=== PATIENT | male | born 1935 | race Caucasian/White ===

== ENCOUNTER 2019-12-06 12:00 | Inpatient (IN) | payer MEDICARE, OTHER ==
[2019-12-06] MEDS: Rosuvastatin 10 MG TAB PO SCH (19:54)
[2019-12-06] MEDS: Ibuprofen 200 MG TAB PO PRN (19:54)
[2019-12-06] MEDS: Melatonin 3 MG TAB PO SCH (19:55)
[2019-12-06] MEDS: Senokot 8.6 MG TAB PO SCH (19:55)
[2019-12-06] MEDS: B6 PO SCH (19:56)
[2019-12-06] MEDS: LEVOMEFOLATE PO SCH (19:56)
[2019-12-06] MEDS: B12 PO SCH (19:56)
[2019-12-06] MEDS: ALGAL OIL PO SCH (19:56)
--- NOTE | 2019-12-06 20:06 | HP ---
HISTORY OF PRESENT ILLNESS: 84-year-old transfer from [facility] in [place], status post left total hip arthroplasty on 11/28/19, converted from a prior ORIF for femoral neck fracture admitted to SNF for continued rehab. History of heavy alcohol use and dementia have rendered him confused and his recovery has been complicated by agitation. Acute facility staff reported his Haldol had been discontinued prior to transfer, however, he is very confused and agitated. He is here for PT and OT, and will likely require his or a sitter to remain at bedside. CURRENT MEDICATIONS: 1. Wellbutrin 300 mg daily. 2. He takes B6 B12 supplement b.i.d. 3. Acetaminophen p.r.n. 4. 400 mg mag oxide daily. 5. As I said, he will start Lovenox 40 subcu daily tomorrow. 6. Fish oil a 1000 mg daily. 7. Quetiapine 25 mg b.i.d. 8. Metoprolol. 9. Toprol-XL 25 daily. 10. Senokot one tab p.o. at bedtime. 11. Crestor 10 mg daily. 12. Motrin 400 q.8 p.r.n. pain. 13. Coenzyme Q10 200 mg daily. 14. Melatonin 3 mg p.o. at bedtime. 15. Folic acid 1 mg p.o. daily. 16. Vitamin D3 33139 units p.o. daily. PAST MEDICAL HISTORY: Heavy alcohol use, dementia, CAD, paroxysmal atrial fibrillation, GERD, and he has a pacemaker. FAMILY HISTORY: Noncontributory. SOCIAL HISTORY: Heavy alcohol use. ALLERGIES: TO CYCLOBENZAPRINE AND ZOLPIDEM, BOTH CAUSE HALLUCINATIONS. REVIEW OF SYSTEMS: Review of systems deferred. Patient is confused. PHYSICAL EXAMINATION: VITAL SIGNS: Temperature 97.7, pulse 80, respirations 20, O2 saturation 95% on room air, blood pressure 123/58. GENERAL APPEARANCE: Alert, disoriented, and confused. He is well appearing, no acute distress. EYES: Conjunctiva clear. No discharge. ORAL CAVITY: Moist mucous membranes. Normal dentition. NECK: Thyroid supple. No lymphadenopathy. No JVD. No carotid bruit. No thyromegaly. CV: Irregularly irregular rhythm, rate 70s. No murmurs. No pulse deficit. Peripheral pulses 2+. RESPIRATIONS: Clear to auscultation. Good air entry bilaterally. No crackles or wheeze. ABDOMEN: Soft, nontender. No mass or megaly. Normal bowel sounds. NEUROLOGIC: CN 2 through 12 grossly intact. Motor function normal. SKIN: Normal, no rash. Left lateral hip dressing is clean, dry, and intact. LABORATORY DATA: Unavailable at this time. However, it was reported that he was COVID negative at [facility] on 11/27/19. ASSESSMENT: Left femoral neck fracture, left total hip arthroplasty, atrial fibrillation, dementia, alcohol withdrawal, coronary artery disease, gastroesophageal reflux disease. PLAN: 1. Continue his home medications. 2. Increase quetiapine to 50 mg b.i.d. 3. PT, OT. Weightbearing as tolerated. 4. He is to have extended DVT prophylaxis for 14 days, which will start tomorrow. 5. He needs to follow up with lele Juan in 2 weeks. Job ID: [id number] [facility]
[2019-12-06] MEDS: Haloperidol Lactate 5 MG/ML VIAL IM PRN (21:39)
[2019-12-07] MEDS: Magnesium Oxide 400 MG TAB PO SCH (09:03)
[2019-12-07] MEDS: Ubidecarenone 50 MG CAP PO SCH (09:03)
[2019-12-07] MEDS: Fish Oil 1,000 MG CAP PO SCH (09:03)
[2019-12-07] MEDS: Folic Acid 1 MG TAB PO SCH (09:04)
[2019-12-07] MEDS: Cholecalciferol 1,000 UNITS (25 MCG) TAB PO SCH (09:04)
[2019-12-07] MEDS: Enoxaparin Sodium 40 MG/0.4 ML SYRINGE SC SCH (09:05)
[2019-12-07] MEDS: BUPROPION 300 MG PO SCH (10:54)
[2019-12-07] MEDS: ALGAL OIL PO SCH ×2 (10:55→19:34)
[2019-12-07] MEDS: B6 PO SCH ×2 (10:55→19:34)
[2019-12-07] MEDS: LEVOMEFOLATE PO SCH ×2 (10:55→19:34)
[2019-12-07] MEDS: Haloperidol Lactate 5 MG/ML VIAL IM PRN ×2 (10:55→18:26)
[2019-12-07] MEDS: B12 PO SCH ×2 (10:55→19:34)
[2019-12-07] MEDS: Acetaminophen 325 MG TAB PO PRN (13:52)
[2019-12-07] MEDS ORDERED: Haloperidol Lactate 5 MG/ML VIAL ONE (18:24)
[2019-12-07] MEDS: Melatonin 3 MG TAB PO SCH (19:33)
[2019-12-07] MEDS: Rosuvastatin 10 MG TAB PO SCH (19:33)
[2019-12-07] MEDS: Senokot 8.6 MG TAB PO SCH (19:33)
[2019-12-07] MEDS: Ibuprofen 200 MG TAB PO PRN (19:33)
[2019-12-08] MEDS ORDERED: Haloperidol Lactate 5 MG/ML VIAL ONE (04:05)
[2019-12-08] MEDS: Haloperidol Lactate 5 MG/ML VIAL IM PRN ×3 (04:10→20:29)
[2019-12-08 04:57] LABS: Hemoglobin 10.4 g/dL (14.0-18.0); Platelet Count 271 thou/uL (130-400)
[2019-12-08] MEDS: Fish Oil 1,000 MG CAP PO SCH (08:02)
[2019-12-08] MEDS: Enoxaparin Sodium 40 MG/0.4 ML SYRINGE SC SCH (08:02)
[2019-12-08] MEDS: Ubidecarenone 50 MG CAP PO SCH (08:03)
[2019-12-08] MEDS: Folic Acid 1 MG TAB PO SCH (08:03)
[2019-12-08] MEDS: B12 PO SCH ×2 (08:03→20:28)
[2019-12-08] MEDS: Magnesium Oxide 400 MG TAB PO SCH (08:03)
[2019-12-08] MEDS: ALGAL OIL PO SCH ×2 (08:03→20:28)
[2019-12-08] MEDS: BUPROPION 300 MG PO SCH (08:03)
[2019-12-08] MEDS: Cholecalciferol 1,000 UNITS (25 MCG) TAB PO SCH (08:03)
[2019-12-08] MEDS: B6 PO SCH ×2 (08:03→20:28)
[2019-12-08] MEDS: LEVOMEFOLATE PO SCH ×2 (08:03→20:28)
[2019-12-08] MEDS: Ibuprofen 200 MG TAB PO PRN (09:45)
[2019-12-08 14:36] LABS: SARS-CoV-2 MS2 Positive; SARS-CoV-2 N Gene Negative; SARS-CoV-2 S Gene Negative; SARS-CoV-2 by NAA Not Detected (NotDetected); SARS-CoV-2 orf1ab Negative
[2019-12-08] MEDS: Senokot 8.6 MG TAB PO SCH (20:27)
[2019-12-08] MEDS: Rosuvastatin 10 MG TAB PO SCH (20:28)
[2019-12-08] MEDS: Melatonin 3 MG TAB PO SCH (20:28)
[2019-12-09] MEDS: Enoxaparin Sodium 40 MG/0.4 ML SYRINGE SC SCH (08:19)
[2019-12-09] MEDS: Ubidecarenone 50 MG CAP PO SCH (08:20)
[2019-12-09] MEDS: Cholecalciferol 1,000 UNITS (25 MCG) TAB PO SCH (08:21)
[2019-12-09] MEDS: Fish Oil 1,000 MG CAP PO SCH (08:23)
[2019-12-09] MEDS: Folic Acid 1 MG TAB PO SCH (08:23)
[2019-12-09] MEDS: Magnesium Oxide 400 MG TAB PO SCH (08:23)
[2019-12-09] MEDS: BUPROPION 300 MG PO SCH (08:27)
[2019-12-09] MEDS: B6 PO SCH (08:28)
[2019-12-09] MEDS: B12 PO SCH (08:28)
[2019-12-09] MEDS: ALGAL OIL PO SCH (08:28)
[2019-12-09] MEDS: LEVOMEFOLATE PO SCH (08:28)
[2019-12-09] MEDS: Haloperidol Lactate 5 MG/ML VIAL IM PRN ×2 (11:46→18:33)
[2019-12-09] MEDS: Rosuvastatin 10 MG TAB PO SCH (20:18)
[2019-12-09] MEDS: Ibuprofen 200 MG TAB PO PRN (20:18)
[2019-12-09] MEDS: Melatonin 3 MG TAB PO SCH (20:18)
[2019-12-09] MEDS: Senokot 8.6 MG TAB PO SCH (20:41)
[2019-12-09] MEDS: METANX PO SCH (22:28)
[2019-12-09] MEDS: Acetaminophen 325 MG TAB PO PRN (22:28)
[2019-12-10] MEDS: Haloperidol Lactate 5 MG/ML VIAL IM PRN ×3 (00:26→19:57)
[2019-12-10 06:33] LABS: Hemoglobin 10.4 g/dL (14.0-18.0); Platelet Count 271 thou/uL (130-400)
[2019-12-10] MEDS: Enoxaparin Sodium 40 MG/0.4 ML SYRINGE SC SCH (08:35)
[2019-12-10] MEDS: Ubidecarenone 50 MG CAP PO SCH (08:35)
[2019-12-10] MEDS: Fish Oil 1,000 MG CAP PO SCH (08:36)
[2019-12-10] MEDS: Folic Acid 1 MG TAB PO SCH (08:36)
[2019-12-10] MEDS: Magnesium Oxide 400 MG TAB PO SCH (08:36)
[2019-12-10] MEDS: Cholecalciferol 1,000 UNITS (25 MCG) TAB PO SCH (08:37)
[2019-12-10] MEDS: METANX PO SCH ×2 (08:53→19:55)
[2019-12-10] MEDS: BUPROPION 300 MG PO SCH (08:53)
[2019-12-10] MEDS: Melatonin 3 MG TAB PO SCH (19:56)
[2019-12-10] MEDS: Ibuprofen 200 MG TAB PO PRN (19:56)
[2019-12-10] MEDS: Senokot 8.6 MG TAB PO SCH (19:56)
[2019-12-10] MEDS: Rosuvastatin 10 MG TAB PO SCH (19:56)
[2019-12-11] MEDS: Haloperidol Lactate 5 MG/ML VIAL IM PRN ×2 (01:01→15:42)
[2019-12-11] MEDS: METANX PO SCH ×2 (09:31→20:11)
[2019-12-11] MEDS: BUPROPION 300 MG PO SCH (09:31)
[2019-12-11] MEDS: Cholecalciferol 1,000 UNITS (25 MCG) TAB PO SCH (09:32)
[2019-12-11] MEDS: Folic Acid 1 MG TAB PO SCH (09:34)
[2019-12-11] MEDS: Magnesium Oxide 400 MG TAB PO SCH (09:34)
[2019-12-11] MEDS: Ubidecarenone 50 MG CAP PO SCH (09:34)
[2019-12-11] MEDS: Fish Oil 1,000 MG CAP PO SCH (09:34)
[2019-12-11] MEDS: Enoxaparin Sodium 40 MG/0.4 ML SYRINGE SC SCH (10:00)
[2019-12-11] MEDS: Senokot 8.6 MG TAB PO SCH (20:05)
[2019-12-11] MEDS: Melatonin 3 MG TAB PO SCH (20:05)
[2019-12-11] MEDS: Rosuvastatin 10 MG TAB PO SCH (20:05)
[2019-12-11] MEDS: Acetaminophen 325 MG TAB PO PRN (20:05)
[2019-12-12 05:39] LABS: Hemoglobin 10.8 g/dL (14.0-18.0); Platelet Count 269 thou/uL (130-400)
[2019-12-12] MEDS: Cholecalciferol 1,000 UNITS (25 MCG) TAB PO SCH (09:52)
[2019-12-12] MEDS: Enoxaparin Sodium 40 MG/0.4 ML SYRINGE SC SCH (09:53)
[2019-12-12] MEDS: Fish Oil 1,000 MG CAP PO SCH (09:56)
[2019-12-12] MEDS: Ubidecarenone 50 MG CAP PO SCH (09:56)
[2019-12-12] MEDS: Magnesium Oxide 400 MG TAB PO SCH (09:57)
[2019-12-12] MEDS: Folic Acid 1 MG TAB PO SCH (09:57)
[2019-12-12] MEDS: METANX PO SCH ×2 (09:57→20:05)
[2019-12-12] MEDS: BUPROPION 300 MG PO SCH (09:58)
[2019-12-12] MEDS: Melatonin 3 MG TAB PO SCH (20:04)
[2019-12-12] MEDS: Rosuvastatin 10 MG TAB PO SCH (20:04)
[2019-12-12] MEDS: Senokot 8.6 MG TAB PO SCH (20:04)
[2019-12-13] MEDS: METANX PO SCH ×2 (09:17→20:42)
[2019-12-13] MEDS: Cholecalciferol 1,000 UNITS (25 MCG) TAB PO SCH (09:18)
[2019-12-13] MEDS: Bupropion 150 MG SR TAB PO SCH (09:18)
[2019-12-13] MEDS: Ubidecarenone 50 MG CAP PO SCH (09:18)
[2019-12-13] MEDS: Magnesium Oxide 400 MG TAB PO SCH (09:18)
[2019-12-13] MEDS: Fish Oil 1,000 MG CAP PO SCH (09:18)
[2019-12-13] MEDS: Folic Acid 1 MG TAB PO SCH (09:18)
[2019-12-13] MEDS: Enoxaparin Sodium 40 MG/0.4 ML SYRINGE SC SCH (09:19)
[2019-12-13] MEDS: Ibuprofen 200 MG TAB PO PRN (11:53)
[2019-12-13] MEDS: Acetaminophen 325 MG TAB PO PRN (11:53)
[2019-12-13] MEDS: Melatonin 3 MG TAB PO SCH (20:43)
[2019-12-13] MEDS: Senokot 8.6 MG TAB PO SCH (20:43)
[2019-12-13] MEDS: Rosuvastatin 10 MG TAB PO SCH (20:43)
[2019-12-14 06:12] LABS: Hemoglobin 9.7 g/dL (14.0-18.0); Platelet Count 239 thou/uL (130-400)
[2019-12-14] MEDS: Enoxaparin Sodium 40 MG/0.4 ML SYRINGE SC SCH (10:41)
[2019-12-14] MEDS: METANX PO SCH ×2 (10:42→20:43)
[2019-12-14] MEDS: Cholecalciferol 1,000 UNITS (25 MCG) TAB PO SCH (10:44)
[2019-12-14] MEDS: Fish Oil 1,000 MG CAP PO SCH (10:45)
[2019-12-14] MEDS: Magnesium Oxide 400 MG TAB PO SCH (10:45)
[2019-12-14] MEDS: Ubidecarenone 50 MG CAP PO SCH (10:45)
[2019-12-14] MEDS: Folic Acid 1 MG TAB PO SCH (10:45)
[2019-12-14] MEDS: Bupropion 150 MG SR TAB PO SCH (10:45)
[2019-12-14] MEDS: Acetaminophen 325 MG TAB PO PRN (13:11)
[2019-12-14] MEDS: Ibuprofen 200 MG TAB PO PRN (13:11)
[2019-12-14] MEDS: Senokot 8.6 MG TAB PO SCH (20:42)
[2019-12-14] MEDS: Rosuvastatin 10 MG TAB PO SCH (20:42)
[2019-12-14] MEDS: Melatonin 3 MG TAB PO SCH (20:42)
[2019-12-15] MEDS ORDERED: Ziprasidone 20 MG VIAL ONE (00:41)
[2019-12-15] MEDS ORDERED: Water For Injection,Sterile 20 ML ONE (00:45)
[2019-12-15] MEDS: Ziprasidone 20 MG VIAL IM PRN (00:55)
[2019-12-15] MEDS: Cholecalciferol 1,000 UNITS (25 MCG) TAB PO SCH (08:36)
[2019-12-15] MEDS: Folic Acid 1 MG TAB PO SCH (08:37)
[2019-12-15] MEDS: Ubidecarenone 50 MG CAP PO SCH (08:37)
[2019-12-15] MEDS: Magnesium Oxide 400 MG TAB PO SCH (08:37)
[2019-12-15] MEDS: Bupropion 150 MG SR TAB PO SCH (08:37)
[2019-12-15] MEDS: Fish Oil 1,000 MG CAP PO SCH (08:38)
[2019-12-15] MEDS: Enoxaparin Sodium 40 MG/0.4 ML SYRINGE SC SCH (08:50)
[2019-12-15] MEDS: METANX PO SCH ×2 (10:47→20:28)
[2019-12-15] MEDS: Haloperidol Lactate 5 MG/ML VIAL IM PRN (13:21)
[2019-12-15] MEDS: Lorazepam 0.5 MG TAB PO PRN ×2 (15:51→20:29)
[2019-12-15] MEDS: Senokot 8.6 MG TAB PO SCH (20:29)
[2019-12-15] MEDS: Rosuvastatin 10 MG TAB PO SCH (20:29)
[2019-12-15] MEDS: Melatonin 3 MG TAB PO SCH (20:30)
[2019-12-16 05:21] LABS: Hemoglobin 9.3 g/dL (14.0-18.0); Platelet Count 204 thou/uL (130-400)
[2019-12-16] MEDS: Enoxaparin Sodium 40 MG/0.4 ML SYRINGE SC SCH (09:03)
[2019-12-16] MEDS: Ubidecarenone 50 MG CAP PO SCH (09:05)
[2019-12-16] MEDS: Cholecalciferol 1,000 UNITS (25 MCG) TAB PO SCH (09:06)
[2019-12-16] MEDS: Lorazepam 0.5 MG TAB PO PRN (09:08)
[2019-12-16] MEDS: risperiDONE 0.5 MG TAB PO SCH (09:08)
[2019-12-16] MEDS: Magnesium Oxide 400 MG TAB PO SCH (09:09)
[2019-12-16] MEDS: Fish Oil 1,000 MG CAP PO SCH (09:09)
[2019-12-16] MEDS: Folic Acid 1 MG TAB PO SCH (09:09)
[2019-12-16] MEDS: METANX PO SCH ×2 (09:10→21:00)
[2019-12-16] MEDS: Bupropion 150 MG SR TAB PO SCH (09:11)
[2019-12-16] MEDS ORDERED: Sterile Water 10 ML VIAL FS PRN (16:12)
[2019-12-16] MEDS: Melatonin 3 MG TAB PO SCH (21:00)
[2019-12-16] MEDS: Senokot 8.6 MG TAB PO SCH (21:00)
[2019-12-16] MEDS: Rosuvastatin 10 MG TAB PO SCH (21:00)
[2019-12-16] MEDS: Ibuprofen 200 MG TAB PO PRN (21:00)
[2019-12-17] MEDS: METANX PO SCH ×2 (09:10→19:55)
[2019-12-17] MEDS: Enoxaparin Sodium 40 MG/0.4 ML SYRINGE SC SCH (09:11)
[2019-12-17] MEDS: Ubidecarenone 50 MG CAP PO SCH (09:11)
[2019-12-17] MEDS: Bupropion 150 MG XL TAB PO SCH (09:13)
[2019-12-17] MEDS: Fish Oil 1,000 MG CAP PO SCH (09:13)
[2019-12-17] MEDS: Cholecalciferol 1,000 UNITS (25 MCG) TAB PO SCH (09:15)
[2019-12-17] MEDS: risperiDONE 0.5 MG TAB PO SCH (09:16)
[2019-12-17] MEDS: Folic Acid 1 MG TAB PO SCH (09:17)
[2019-12-17] MEDS: Magnesium Oxide 400 MG TAB PO SCH (09:17)
[2019-12-17] MEDS: Lorazepam 0.5 MG TAB PO PRN ×2 (10:30→17:08)
[2019-12-17] MEDS: Ibuprofen 200 MG TAB PO PRN (19:25)
[2019-12-17] MEDS: Melatonin 3 MG TAB PO SCH (19:55)
[2019-12-17] MEDS: Rosuvastatin 10 MG TAB PO SCH (19:55)
[2019-12-17] MEDS: Senokot 8.6 MG TAB PO SCH (19:55)
[2019-12-17] MEDS ORDERED: Lorazepam 0.5 MG TAB PO SCH (20:00)
[2019-12-18] MEDS: Lorazepam 0.5 MG TAB PO PRN ×3 (02:54→21:45)
[2019-12-18] MEDS: Acetaminophen 325 MG TAB PO PRN ×3 (02:54→21:45)
[2019-12-18] MEDS: Enoxaparin Sodium 40 MG/0.4 ML SYRINGE SC SCH (09:12)
[2019-12-18] MEDS: Fish Oil 1,000 MG CAP PO SCH (09:13)
[2019-12-18] MEDS: METANX PO SCH ×2 (09:13→21:45)
[2019-12-18] MEDS: Folic Acid 1 MG TAB PO SCH (09:14)
[2019-12-18] MEDS: Ubidecarenone 50 MG CAP PO SCH (09:14)
[2019-12-18] MEDS: Magnesium Oxide 400 MG TAB PO SCH (09:14)
[2019-12-18] MEDS: Bupropion 150 MG XL TAB PO SCH (09:14)
[2019-12-18] MEDS: risperiDONE 0.5 MG TAB PO SCH (09:14)
[2019-12-18] MEDS: Cholecalciferol 1,000 UNITS (25 MCG) TAB PO SCH (09:15)
[2019-12-18 12:12] LABS: Hemoglobin 10.2 g/dL (14.0-18.0); Platelet Count 205 thou/uL (130-400)
[2019-12-18] MEDS: Ibuprofen 200 MG TAB PO PRN ×2 (12:18→21:45)
[2019-12-18] MEDS: Melatonin 3 MG TAB PO SCH (21:45)
[2019-12-18] MEDS: Senokot 8.6 MG TAB PO SCH (21:45)
[2019-12-18] MEDS: Rosuvastatin 10 MG TAB PO SCH (21:45)
[2019-12-19] MEDS: Bupropion 150 MG XL TAB PO SCH (08:26)
[2019-12-19] MEDS: Fish Oil 1,000 MG CAP PO SCH (08:26)
[2019-12-19] MEDS: Magnesium Oxide 400 MG TAB PO SCH (08:26)
[2019-12-19] MEDS: Enoxaparin Sodium 40 MG/0.4 ML SYRINGE SC SCH (08:26)
[2019-12-19] MEDS: Ubidecarenone 50 MG CAP PO SCH (08:27)
[2019-12-19] MEDS: Folic Acid 1 MG TAB PO SCH (08:27)
[2019-12-19] MEDS: Cholecalciferol 1,000 UNITS (25 MCG) TAB PO SCH (08:27)
[2019-12-19] MEDS: risperiDONE 0.5 MG TAB PO SCH (08:27)
[2019-12-19] MEDS: METANX PO SCH ×2 (08:30→21:15)
[2019-12-19] MEDS: Acetaminophen 325 MG TAB PO PRN ×2 (15:44→23:28)
[2019-12-19] MEDS: Ibuprofen 200 MG TAB PO PRN ×2 (15:44→23:28)
[2019-12-19] MEDS: Lorazepam 0.5 MG TAB PO PRN ×2 (16:28→21:12)
[2019-12-19] MEDS: Rosuvastatin 10 MG TAB PO SCH (21:11)
[2019-12-19] MEDS: Senokot 8.6 MG TAB PO SCH (21:11)
[2019-12-19] MEDS: Melatonin 3 MG TAB PO SCH (21:12)
[2019-12-20] MEDS: Lorazepam 0.5 MG TAB PO PRN ×3 (01:02→21:06)
[2019-12-20 05:16] LABS: Hemoglobin 10.1 g/dL (14.0-18.0); Platelet Count 208 thou/uL (130-400)
[2019-12-20] MEDS: Ubidecarenone 50 MG CAP PO SCH (10:06)
[2019-12-20] MEDS: Cholecalciferol 1,000 UNITS (25 MCG) TAB PO SCH (10:07)
[2019-12-20] MEDS: Fish Oil 1,000 MG CAP PO SCH (10:07)
[2019-12-20] MEDS: Enoxaparin Sodium 40 MG/0.4 ML SYRINGE SC SCH (10:08)
[2019-12-20] MEDS: Bupropion 150 MG XL TAB PO SCH (10:08)
[2019-12-20] MEDS: risperiDONE 0.5 MG TAB PO SCH ×2 (10:08→20:47)
[2019-12-20] MEDS: Magnesium Oxide 400 MG TAB PO SCH (10:08)
[2019-12-20] MEDS: Folic Acid 1 MG TAB PO SCH (10:08)
[2019-12-20] MEDS: METANX PO SCH ×2 (10:09→20:52)
[2019-12-20] MEDS: Acetaminophen 325 MG TAB PO PRN ×2 (13:04→20:47)
[2019-12-20] MEDS: Ibuprofen 200 MG TAB PO PRN ×2 (13:04→20:47)
[2019-12-20] MEDS ORDERED: Ziprasidone 20 MG VIAL ONE (13:46)
[2019-12-20] MEDS ORDERED: Sterile Water 10 ML ONE (14:32)
[2019-12-20] MEDS ORDERED: Sterile Water 100 ML ONE (14:32)
[2019-12-20] MEDS: Ziprasidone 20 MG VIAL IM PRN (14:47)
[2019-12-20] MEDS ORDERED: risperiDONE 0.5 MG TAB PO SCH (17:15)
[2019-12-20] MEDS: Melatonin 3 MG TAB PO SCH (20:47)
[2019-12-20] MEDS: Senokot 8.6 MG TAB PO SCH (20:47)
[2019-12-20] MEDS: Rosuvastatin 10 MG TAB PO SCH (20:47)
[2019-12-21] MEDS: Folic Acid 1 MG TAB PO SCH ×2 (09:00→09:31)
[2019-12-21] MEDS: Fish Oil 1,000 MG CAP PO SCH ×2 (09:00→09:31)
[2019-12-21] MEDS: Cholecalciferol 1,000 UNITS (25 MCG) TAB PO SCH ×2 (09:00→09:30)
[2019-12-21] MEDS: Magnesium Oxide 400 MG TAB PO SCH ×2 (09:28→14:48)
[2019-12-21] MEDS: risperiDONE 0.5 MG TAB PO SCH ×2 (09:28→20:03)
[2019-12-21] MEDS: Bupropion 150 MG XL TAB PO SCH (09:28)
[2019-12-21] MEDS: METANX PO SCH ×2 (09:29→20:15)
[2019-12-21] MEDS: Ubidecarenone 50 MG CAP PO SCH ×2 (09:29→14:48)
[2019-12-21] MEDS: Enoxaparin Sodium 40 MG/0.4 ML SYRINGE SC SCH (14:48)
[2019-12-21] MEDS: Acetaminophen 325 MG TAB PO PRN (20:03)
[2019-12-21] MEDS: Melatonin 3 MG TAB PO SCH (20:03)
[2019-12-21] MEDS: Rosuvastatin 10 MG TAB PO SCH (20:03)
[2019-12-21] MEDS: Senokot 8.6 MG TAB PO SCH (20:12)
[2019-12-21 21:31] VITALS: BMI 28.0
[2019-12-21] MEDS: Ibuprofen 200 MG TAB PO PRN (22:36)
[2019-12-21] MEDS: Lorazepam 0.5 MG TAB PO PRN (22:36)
[2019-12-22 05:27] LABS: Hemoglobin 9.8 g/dL (14.0-18.0); Platelet Count 169 thou/uL (130-400)
[2019-12-22 05:42] LABS: Calc. Creatinine Clearance 92 mL/min (70-130); Estimated GFR-MDRD Greater than 90
[2019-12-22] MEDS: METANX PO SCH ×2 (09:34→20:28)
[2019-12-22] MEDS: Cholecalciferol 1,000 UNITS (25 MCG) TAB PO SCH (09:35)
[2019-12-22] MEDS: Folic Acid 1 MG TAB PO SCH (09:37)
[2019-12-22] MEDS: Ubidecarenone 50 MG CAP PO SCH (09:37)
[2019-12-22] MEDS: Fish Oil 1,000 MG CAP PO SCH (09:37)
[2019-12-22] MEDS: Magnesium Oxide 400 MG TAB PO SCH (09:38)
[2019-12-22] MEDS: risperiDONE 0.5 MG TAB PO SCH ×2 (09:38→20:28)
[2019-12-22] MEDS: Bupropion 150 MG XL TAB PO SCH (09:38)
[2019-12-22] MEDS: Lorazepam 0.5 MG TAB PO PRN ×3 (10:42→21:40)
[2019-12-22] MEDS: Ibuprofen 200 MG TAB PO PRN ×2 (10:42→20:29)
[2019-12-22] MEDS: Acetaminophen 325 MG TAB PO PRN (10:43)
[2019-12-22] MEDS: Melatonin 3 MG TAB PO SCH (20:28)
[2019-12-22] MEDS: Senokot 8.6 MG TAB PO SCH ×2 (20:28→20:33)
[2019-12-22] MEDS: Rosuvastatin 10 MG TAB PO SCH (20:29)
[2019-12-23] MEDS: Lorazepam 0.5 MG TAB PO PRN ×2 (02:53→08:40)
[2019-12-23] MEDS ORDERED: Lorazepam 0.5 MG TAB ONE (07:53)
[2019-12-23] MEDS: Cholecalciferol 1,000 UNITS (25 MCG) TAB PO SCH (08:37)
[2019-12-23] MEDS: Bupropion 150 MG XL TAB PO SCH (08:38)
[2019-12-23] MEDS: Ubidecarenone 50 MG CAP PO SCH (08:39)
[2019-12-23] MEDS: risperiDONE 0.5 MG TAB PO SCH (08:40)
[2019-12-23] MEDS: METANX PO SCH ×2 (08:41→21:30)
[2019-12-23] MEDS: Folic Acid 1 MG TAB PO SCH (08:41)
[2019-12-23] MEDS: Magnesium Oxide 400 MG TAB PO SCH (08:41)
[2019-12-23] MEDS: Fish Oil 1,000 MG CAP PO SCH (08:41)
[2019-12-23] MEDS: Lorazepam 1 MG TAB PO PRN ×3 (13:29→21:29)
[2019-12-23] MEDS: Senokot 8.6 MG TAB PO SCH (19:40)
[2019-12-23] MEDS: Rosuvastatin 10 MG TAB PO SCH (21:29)
[2019-12-23] MEDS: Melatonin 3 MG TAB PO SCH (21:29)
[2019-12-24] MEDS: Lorazepam 1 MG TAB PO PRN ×3 (02:23→12:58)
[2019-12-24 05:28] LABS: Calc. Creatinine Clearance 93 mL/min (70-130); Estimated GFR-MDRD Greater than 90
[2019-12-24 05:40] LABS: Hemoglobin 10.4 g/dL (14.0-18.0); Platelet Count 181 thou/uL (130-400)
[2019-12-24 06:09] VITALS: BP 135/66; TEMP 97.7
[2019-12-24] MEDS: METANX PO SCH (08:48)
[2019-12-24] MEDS: Cholecalciferol 1,000 UNITS (25 MCG) TAB PO SCH (08:50)
[2019-12-24] MEDS: Ubidecarenone 50 MG CAP PO SCH (08:52)
[2019-12-24] MEDS: Fish Oil 1,000 MG CAP PO SCH (08:52)
[2019-12-24] MEDS: Magnesium Oxide 400 MG TAB PO SCH (08:54)
[2019-12-24] MEDS: Folic Acid 1 MG TAB PO SCH (08:54)
[2019-12-24] MEDS ORDERED: risperiDONE 0.5 MG TAB PO SCH (21:00)
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
== END 2019-12-24 13:35 | disposition psychiatric hospital, planned readmission (93) | DRG 560 ==
LOC: BURMED 16:35
PROVIDERS: ADMIT Family Medicine; ATTEND Family Medicine
DX: Z47.1 Aftercare following joint replacement surgery (principal); F10.239 Alcohol dependence with withdrawal, unspecified; F03.90 Unspecified dementia, unspecified severity, without behavioral disturbance, psychotic disturbance, mood disturbance, and anxiety; I48.0 Paroxysmal atrial fibrillation; I25.10 Atherosclerotic heart disease of native coronary artery without angina pectoris; K21.9 Gastro-esophageal reflux disease without esophagitis; Z79.899 Other long term (current) drug therapy; Z88.8 Allergy status to other drugs, medicaments and biological substances; Z95.0 Presence of cardiac pacemaker; Z20.828 Contact with and (suspected) exposure to other viral communicable diseases
CPT/HCPCS: 36415; 82565; 85014; 85018; 85049; 87635; J1630; J1650; J3486; U0003